=== PATIENT | female | born 1980 | race Caucasian/White ===

== ENCOUNTER 2016-10-08 01:21 | Observation (INO) | payer OTHER ==
[2016-10-08] MEDS ORDERED: SODIUM CHLORIDE 0.9% 1,000 ML IV STA (01:48)
[2016-10-08 02:12] LABS: Basophils # (A) 0.1 k/uL (0-0.2); Basophils % (A) 1 %; CH 28.1; CHCM 33.2; Eosinophils # (A) 0.3 k/uL (0-0.7); Eosinophils % (A) 3 %; HCT 35.3 % (34.0-46.0); HDW 2.97; HGB 11.7 gm/dL (11.4-16.0); Luc # (Auto) 0.12; Luc % (Auto) 1; Lymphocytes % (A) 19 %; MCH 28.2 pg (25.0-35.0); MCHC 33.1 g/dL (31.0-37.0); Mean Platelet Volume 7.6; Monocytes # (A) 0.5 k/uL (0-1.0); Monocytes % (A) 5 %; Neutrophils # (A) 7.4 k/uL (1.3-7.7); Neutrophils % (A) 72 %; RBC 4.15 m/uL (3.80-5.40); RDW 13.3 % (11.5-15.5); WBC 10.3 k/uL (3.8-10.6); WBC (Perox) 10.97
[2016-10-08 02:22] LABS: ALT 28 U/L (9-52); AST 18 U/L (14-36); Alkaline Phosphatase 78 U/L (38-126); Anion Gap 8 mmol/L; Blood Urea Nitrogen 11 mg/dL (7-17); Calcium 9.5 mg/dL (8.4-10.2); Carbon Dioxide 27 mmol/L (22-30); Chloride 107 mmol/L (98-107); Glucose 98 mg/dL (74-99); Magnesium 2.1 mg/dL (1.6-2.3); Non-African American GFR(MDRD) >60 (>60 ml/min/1.73 sqM); Potassium 3.5 mmol/L (3.5-5.1); Sodium 142 mmol/L (137-145); Total Bilirubin 0.4 mg/dL (0.2-1.3); Total Protein 6.8 g/dL (6.3-8.2)
[2016-10-08 02:34] LABS: Creatine Kinase 81 U/L (30-135)
[2016-10-08 02:38] LABS: INR 1.1 (<1.1); Prothrombin Time 10.8 sec (9.0-12.0)
[2016-10-08 02:46] LABS: Creatine Kinase MB 0.8 ng/mL (0.0-2.4); Troponin I <0.012 ng/mL (0.000-0.034)
--- NOTE | 2016-10-08 02:50 | XR ---
Chest PA and lateral views INDICATION: Chest pain COMPARISON: None. FINDINGS: PA and lateral views of the chest are obtained. The heart is upper limits of normal in size. Pulmonary vascularity is normal. There is no airspace consolidation, pleural effusion, or pneumothorax. Regional skeleton is intact. IMPRESSION: No radiographic evidence of acute cardiopulmonary disease.
[2016-10-08 03:00] LABS: Partial Thromboplastin Time 20.1 sec (22.0-30.0)
--- NOTE | 2016-10-08 03:33 | ED ---
Fall HPI - General Chief Complaint: Fall Stated Complaint: Seizure/Fall Time Seen by Provider: 10/08/16 01:47 Source: patient, family, RN notes reviewed, old records reviewed Mode of arrival: EMS - History of Present Illness Initial Comments: This is a 36-year-old female with chief complaint of possible seizure. Patient reports that she was standing in her living room. She reports that she then started having sharp chest pain question her chest and then fell to the ground. Patient reports that when she fell to the ground she had a coffee table with her arms. She rolls reports that she hit her head. Patient reports that her boyfriend stated that she then started to "flap like a fish". She states she's never had seizures before. She states that earlier today she went to a . She states that she smoked weed earlier. Denies any other drug or alcohol use. Patient states that at this time she just feels very tired. She did arrive via EMS. Denies any chest pain or shortness of breath, denies any nausea or vomiting or abdominal pain. She states that they're only pain is her head and neck after the fall. She denies any change in vision. Patient is post ictal at this time. Patient does appear to be very dazed and confused. - Related Data Home Medications Medication Instructions Recorded Confirmed ALPRAZolam [Xanax] 0.5 mg PO HS PRN 12/31/13 10/08/16 Naproxen [Naprosyn] 500 mg PO Q12HR PRN 12/31/13 10/08/16 Mirtazapine [Remeron] 15 mg PO HS 05/13/15 10/08/16 SUMAtriptan SUCCINATE [Imitrex] 100 mg PO BID PRN 02/21/16 10/08/16 Vilazodone Hydrochloride [Viibryd] 40 mg PO HS 02/21/16 10/08/16 lamoTRIgine [LaMICtal] 100 mg PO HS 02/21/16 10/08/16 Previous Rx's Medication Instructions Recorded Ondansetron Odt [Zofran ODT] 4 mg PO Q8HR PRN #10 tab 12/02/14 Allergies Allergy/AdvReac Type Severity Reaction Status Date / Time doxycycline Allergy Unknown Verified 10/08/16 01:32 Review of Systems ROS Statement: Those systems with pertinent positive or pertinent negative responses have been documented in the HPI. ROS Other: All systems not noted in ROS Statement are negative. Past Medical History Additional Past Medical History / Comment(s): migraines, lympoedema rt leg History of Any Multi-Drug Resistant Organisms: None Reported Past Surgical History: Adenoidectomy, Appendectomy, Cholecystectomy, Orthopedic Surgery, Tonsillectomy Additional Past Surgical History / Comment(s): mass left breast, migrain Past Psychological History: Anxiety, Bipolar, Depression Smoking Status: Current every day smoker Past Alcohol Use History: None Reported Past Drug Use History: Marijuana General Exam - General Exam Comments Initial Comments: This is a lethargic 36-year-old female. Limitations: no limitations General appearance: alert, in no apparent distress, appears intoxicated Head exam: Present: atraumatic, normocephalic, normal inspection Eye exam: Present: normal appearance, PERRL, EOMI. Absent: scleral icterus, conjunctival injection, periorbital swelling ENT exam: Present: normal exam, mucous membranes moist Neck exam: Present: normal inspection. Absent: tenderness, meningismus, lymphadenopathy Respiratory exam: Present: normal lung sounds bilaterally. Absent: respiratory distress, wheezes, rales, rhonchi, stridor Cardiovascular Exam: Present: regular rate, normal rhythm, normal heart sounds. Absent: systolic murmur, diastolic murmur, rubs, gallop, clicks GI/Abdominal exam: Present: soft, normal bowel sounds. Absent: distended, tenderness, guarding, rebound, rigid Extremities exam: Present: normal inspection, full ROM, normal capillary refill. Absent: tenderness, pedal edema, joint swelling, calf tenderness Back exam: Present: normal inspection Neurological exam: Present: alert, oriented X3, CN II-XII intact Psychiatric exam: Present: normal affect, normal mood Skin exam: Present: warm, dry, intact, normal color. Absent: rash Course Vital Signs 10/08/16 01:27 Temperature 97.5 F L Pulse Rate 68 Respiratory 18 Rate Blood Pressure 94/57 O2 Sat by Pulse 98 Oximetry Medical Decision Making - Medical Decision Making This is a 36-year-old female with chief complaint of anxiety induced chest pain later leading to her her her to fall and the floor and passed out. Her boyfriend states that she had a seizure-like episode for approximately 2 minutes. She arrives to the emergency department postictal. She is somewhat dazed and confused and very lethargic. Patient CAT scan was reviewed and negative for any acute process. Chest x-ray also negative. All lab work was reviewed and normal. Patient states she's never had a history of seizures in the past. Patient reports that earlier today she did take 0.25 mg of Ativan for her diagnosed anxiety. Patient states she's took no more than that. Patient will be admitted this time due to continued confusion and postictal state. Also new onset seizure. We'll consult neurology. Patient agrees to admission. - Lab Data Result diagrams: 10/08/16 01:47 10/08/16 01:47 Lab Results 10/08/16 10/08/16 10/08/16 Range/Units 01:47 01:47 01:47 WBC 10.3 (3.8-10.6) k/uL RBC 4.15 (3.80-5.40) m/uL Hgb 11.7 (11.4-16.0) gm/dL Hct 35.3 (34.0-46.0) % MCV 85.0 (80.0-100.0) fL MCH 28.2 (25.0-35.0) pg MCHC 33.1 (31.0-37.0) g/dL RDW 13.3 (11.5-15.5) % Plt Count 207 (150-450) k/uL Neutrophils % 72 % Lymphocytes % 19 % Monocytes % 5 % Eosinophils % 3 % Basophils % 1 % Neutrophils # 7.4 (1.3-7.7) k/uL Lymphocytes # 2.0 (1.0-4.8) k/uL Monocytes # 0.5 (0-1.0) k/uL Eosinophils # 0.3 (0-0.7) k/uL Basophils # 0.1 (0-0.2) k/uL PT (9.0-12.0) sec INR (<1.1) APTT (22.0-30.0) sec Sodium 142 (137-145) mmol/L Potassium 3.5 (3.5-5.1) mmol/L Chloride 107 (98-107) mmol/L Carbon Dioxide 27 (22-30) mmol/L Anion Gap 8 mmol/L BUN 11 (7-17) mg/dL Creatinine 0.80 (0.52-1.04) mg/dL Est GFR (MDRD) Af Amer >60 (>60 ml/min/1.73 sqM) Est GFR (MDRD) Non-Af >60 (>60 ml/min/1.73 sqM) Glucose 98 (74-99) mg/dL Calcium 9.5 (8.4-10.2) mg/dL Magnesium 2.1 (1.6-2.3) mg/dL Total Bilirubin 0.4 (0.2-1.3) mg/dL AST 18 (14-36) U/L ALT 28 (9-52) U/L Alkaline Phosphatase 78 (38-126) U/L Total Creatine Kinase 81 (30-135) U/L CK-MB (CK-2) 0.8 (0.0-2.4) ng/mL CK-MB (CK-2) Rel Index 1.0 Troponin I <0.012 (0.000-0.034) ng/mL NT-Pro-B Natriuret Pep pg/mL Total Protein 6.8 (6.3-8.2) g/dL Albumin 4.2 (3.5-5.0) g/dL Urine Opiates Screen (NotDetected) Ur Oxycodone Screen (NotDetected) Urine Methadone Screen (NotDetected) Ur Propoxyphene Screen (NotDetected) Ur Barbiturates Screen (NotDetected) U Tricyclic Antidepress (NotDetected) Ur Phencyclidine Scrn (NotDetected) Ur Amphetamines Screen (NotDetected) U Methamphetamines Scrn (NotDetected) U Benzodiazepines Scrn (NotDetected) Urine Cocaine Screen (NotDetected) U Marijuana (THC) Screen (NotDetected) 10/08/16 10/08/16 10/08/16 Range/Units 01:47 01:47 01:47 WBC (3.8-10.6) k/uL RBC (3.80-5.40) m/uL Hgb (11.4-16.0) gm/dL Hct (34.0-46.0) % MCV (80.0-100.0) fL MCH (25.0-35.0) pg MCHC (31.0-37.0) g/dL RDW (11.5-15.5) % Plt Count (150-450) k/uL Neutrophils % % Lymphocytes % % Monocytes % % Eosinophils % % Basophils % % Neutrophils # (1.3-7.7) k/uL Lymphocytes # (1.0-4.8) k/uL Monocytes # (0-1.0) k/uL Eosinophils # (0-0.7) k/uL Basophils # (0-0.2) k/uL PT 10.8 (9.0-12.0) sec INR 1.1 (<1.1) APTT 20.1 L (22.0-30.0) sec Sodium (137-145) mmol/L Potassium (3.5-5.1) mmol/L Chloride (98-107) mmol/L Carbon Dioxide (22-30) mmol/L Anion Gap mmol/L BUN (7-17) mg/dL Creatinine (0.52-1.04) mg/dL Est GFR (MDRD) Af Amer (>60 ml/min/1.73 sqM) Est GFR (MDRD) Non-Af (>60 ml/min/1.73 sqM) Glucose (74-99) mg/dL Calcium (8.4-10.2) mg/dL Magnesium (1.6-2.3) mg/dL Total Bilirubin (0.2-1.3) mg/dL AST (14-36) U/L ALT (9-52) U/L Alkaline Phosphatase (38-126) U/L Total Creatine Kinase (30-135) U/L CK-MB (CK-2) (0.0-2.4) ng/mL CK-MB (CK-2) Rel Index Troponin I (0.000-0.034) ng/mL NT-Pro-B Natriuret Pep 59 pg/mL Total Protein (6.3-8.2) g/dL Albumin (3.5-5.0) g/dL Urine Opiates Screen Not Detected (NotDetected) Ur Oxycodone Screen Not Detected (NotDetected) Urine Methadone Screen Not Detected (NotDetected) Ur Propoxyphene Screen Not Detected (NotDetected) Ur Barbiturates Screen Not Detected (NotDetected) U Tricyclic Antidepress Not Detected (NotDetected) Ur Phencyclidine Scrn Not Detected (NotDetected) Ur Amphetamines Screen Not Detected (NotDetected) U Methamphetamines Scrn Not Detected (NotDetected) U Benzodiazepines Scrn Detected H (NotDetected) Urine Cocaine Screen Not Detected (NotDetected) U Marijuana (THC) Screen Detected H (NotDetected) 10/08/16 04:33 EKG shows sinus rhythm. Nonspecific ST abnormality. Ventricular rate. [place] interval 162 ms. QRS duration 84 ms. QT QTc is 34/73 ms. EKG does have evidence of what appears to be artifact time. - Radiology Data Radiology results: report reviewed Computed tomography scan of brain and neck were reviewed and negative for any acute process. Chest x-ray also negative for any acute process. Disposition Clinical Impression: New onset seizure Disposition: ADMITTED IP TO THIS HOSP Condition: Stable Time of Disposition: 04:25
--- NOTE | 2016-10-08 03:34 | CT ---
CT HEAD Without Contrast INDICATION: Headache TECHNIQUE: Helical CT acquisition was performed from the posterior fossa to the cranial vault. Sagittal and coronal reformatted images provided. No IV contrast is administered. This CT exam was performed using one or more of the following dose reduction techniques: automated exposure control, adjustment of the mA and/or kV according to patient size, and/or use of iterative reconstruction technique. DOSIMETRY: CTDIvol 57.40 mGy; DLP 892.10 mGy-cm COMPARISON: None. FINDINGS: No intracranial hemorrhage, abnormal intra- or extra-axial collections or parenchymal lesions are seen. The shape and configuration of the cortical sulci, basal cisterns and ventricles are within normal limits. The mcdaniel-white differentiation is preserved. No evidence of mass effect, midline shift, or edema. There is no evidence of skull fracture. The visualized portions of the paranasal sinuses are clear. IMPRESSION: No CT evidence of acute intracranial process. CT C SPINE Without Contrast INDICATION: Neck pain TECHNIQUE: Helical CT acquisition was performed from the cervical spine. Sagittal and coronal reformatted images provided. No IV contrast is administered. This CT exam was performed using one or more of the following dose reduction techniques: automated exposure control, adjustment of the mA and/or kV according to patient size, and/or use of iterative reconstruction technique. DOSIMETRY: CTDIvol 20.00 mGy; DLP 369.60 mGy-cm COMPARISON: None. FINDINGS: There is reversal of the normal cervical lordosis with mild kyphosis. Vertebral body height and alignment are maintained. There is no evidence of acute fracture or subluxation. Spinal canal is adequately patent. Disc spaces are preserved. There is no prevertebral soft tissue swelling. The lung apices are clear. IMPRESSION: 1. Reversal of the normal cervical lordosis without evidence of acute fracture or subluxation.
[2016-10-08] MEDS ORDERED: NALOXONE 0.4 MG/ML 1 ML VIAL IV PRN (04:25)
[2016-10-08] MEDS ORDERED: ONDANSETRON 4 MG/2 ML VIAL IVP PRN (04:25)
[2016-10-08] MEDS ORDERED: NAPROXEN 250 MG TAB PO PRN (04:48)
[2016-10-08] MEDS ORDERED: ALPRAZolam 0.5 MG TAB PO PRN (04:48)
[2016-10-08] MEDS ORDERED: SUMAtriptan SUCCINATE 50 MG TAB PO PRN (04:48)
[2016-10-08] MEDS ORDERED: LORazepam 2 MG/ML SYRINGE IV PRN (05:12)
[2016-10-08 05:50] VITALS: BMI 25.8
[2016-10-08] MEDS: ACETAMINOPHEN TAB 325 MG TAB PO PRN ×2 (06:07→14:28)
[2016-10-08] MEDS: SODIUM CHLORIDE 0.9% 1,000 ML IV SCH ×3 (06:09→22:49)
[2016-10-08] MEDS: PANTOPRAZOLE 40 MG/10 ML VIAL IV SCH (07:48)
--- NOTE | 2016-10-08 15:08 | P.CNNES ---
History of Present Illness Consult date: 10/08/16 Reason for Consult: Patient admitted with possible new onset seizure. History of Present Illness: This patient is a 36-year-old female who states that she was in her usual state of health until yesterday evening. She was at home and was standing in the living room area when she developed severe chest pain. She grabbed her chest and apparently fell down and struck her head on a coffee table. She apparently did have some loss of consciousness and then had what her boyfriend describes as a questionable seizure. She began some tonic-clonic movements. She did not have any bowel or bladder incontinence but did have some nausea vomiting. She denies any previous history of seizures or head injury. She did admit to smoking marijuana early in the day as she had to attend a . EMS was called to the home and she was admitted to Hospital. In the ER the patient underwent computed tomography scan of the brain and cervical spine. Both of the studies came back negative for any acute changes. She does have history of underlying bipolar disorder and panic attacks. She is not sure what had triggered this recent event. She does use Ativan for treatment of underlying anxiety disorder. It is unclear whether this may have been a secondary seizure due to closed head injury following her fall. She apparently has not had symptoms of severe chest pain previous to this event. She may be considered for cardiology consultation. She denies any other medical issues and denies any recent heart difficulties. She is now been admitted and neurology has been consulted for further evaluation and recommendations. Review of Systems Constitutional: Denies chills, Denies fever Eyes: denies blurred vision, denies pain Ears, nose, mouth and throat: Denies headache, Denies sore throat Cardiovascular: Denies chest pain, Denies shortness of breath Respiratory: Denies cough Gastrointestinal: Denies abdominal pain, Denies diarrhea, Denies nausea, Denies vomiting Genitourinary: Denies dysuria, Denies hematuria Musculoskeletal: Denies myalgias Integumentary: Denies pruritus, Denies rash Neurological: Reports confusion, Reports convulsions, Reports head injury, Reports seizures, Denies numbness, Denies weakness Psychiatric: Denies anxiety, Denies depression Endocrine: Denies fatigue, Denies weight change Past Medical History Additional Past Medical History / Comment(s): migraines, lympoedema rt leg History of Any Multi-Drug Resistant Organisms: None Reported Past Surgical History: Adenoidectomy, Appendectomy, Cholecystectomy, Orthopedic Surgery, Tonsillectomy Additional Past Surgical History / Comment(s): mass left breast, migrain Past Psychological History: Anxiety, Bipolar, Depression Smoking Status: Current every day smoker Past Alcohol Use History: None Reported Past Drug Use History: Marijuana - Past Family History Mother Family Medical History: No Reported History Father Family Medical History: No Reported History Medications and Allergies Home Medications Medication Instructions Recorded Confirmed Type ALPRAZolam [Xanax] 0.5 mg PO HS PRN 12/31/13 10/08/16 History Naproxen [Naprosyn] 500 mg PO Q12HR PRN 12/31/13 10/08/16 History Mirtazapine [Remeron] 15 mg PO HS 05/13/15 10/08/16 History SUMAtriptan SUCCINATE [Imitrex] 100 mg PO BID PRN 02/21/16 10/08/16 History Vilazodone Hydrochloride [Viibryd] 40 mg PO HS 02/21/16 10/08/16 History lamoTRIgine [LaMICtal] 100 mg PO HS 02/21/16 10/08/16 History Ergocalciferol [Vitamin D2] 50,000 unit PO TH 10/08/16 10/08/16 History Allergies Allergy/AdvReac Type Severity Reaction Status Date / Time doxycycline AdvReac Nausea & Verified 10/08/16 08:52 Vomiting Physical Examination - Vital Signs Vital Signs: Vital Signs Temp Pulse Pulse Pulse Resp BP BP 10/08/16 08:00 63 72 17 10/08/16 07:00 98.2 F 63 17 94/55 10/08/16 06:10 98.3 F 72 20 106/64 10/08/16 05:22 84 16 117/69 Pulse Ox 10/08/16 08:00 10/08/16 07:00 98 10/08/16 06:10 98 10/08/16 05:22 98 Intake and Output 10/07/16 10/08/16 10/08/16 22:59 06:59 14:59 Other: Voiding Method Toilet Toilet Weight 56 kg 56 kg Patient Weight 10/09/16 06:59 Weight 56 kg - Constitutional General appearance: average body habitus, cooperative - EENT EENT: PERRL, mucous membranes moist - Respiratory Respiratory: lungs clear, normal breath sounds - Cardiovascular Cardiovascular: regular rate, normal S1, normal S2 Extremities: no peripheral edema bilaterally - Gastrointestinal Gastrointestinal: normoactive bowel sounds - Integumentary Integumentary: normal - Neurologic Cranial nerve examination: PERRL, EOMI, VFF, V1/V2/V3 grossly intact, tongue midline, intact gag reflex, intact corneal reflex, normal palatal elevation ( Some. He was put it is ICU) Speech examination: intact ( she isBecause she was on the medical floor and transferred her ) Sensorimotor examination: intact Detailed motor examination: grossly full strength in all extremities Detailed sensory examination: intact Reflexes: 1+: ankle, bicep, knee, tricep - Musculoskeletal Musculoskeletal: no pain - Psychiatric Psychiatric: mood/affect appropriate, cooperative Results - Laboratory Findings CBC and BMP: 10/08/16 01:47 10/08/16 01:47 Assessment and Plan (1) New onset seizure Status: Acute Code(s): R56.9 - UNSPECIFIED CONVULSIONS (2) Closed head injury Status: Acute Code(s): S09.90XA - UNSPECIFIED INJURY OF HEAD, INITIAL ENCOUNTER (3) Panic attacks Status: Acute Code(s): F41.0 - PANIC DISORDER WITHOUT AGORAPHOBIA (4) Migraine headache Status: Acute Code(s): G43.909 - MIGRAINE, UNSP, NOT INTRACTABLE, WITHOUT STATUS MIGRAINOSUS Plan: This patient is a 36-year-old female admitted to Hospital with closed head injury and possible new onset seizure. Patient was at home and developed severe chest pain and collapse and struck her head on a coffee table. She apparently had what appeared to be a small seizure lasting 1-2 minutes in duration. She came around and did appear to be confused. EMS was called to the scene and she was brought in to the emergency room subsequent admitted to the hospital. She underwent a computed tomography scan of the brain and cervical spine both of which were negative for any acute changes. Her neurological examination at this time is nonfocal. We recommend patient undergo routine EEG for further evaluation of possible seizure disorder. Her urine drug screen was positive for marijuana and benzodiazepines. She is encouraged to seek out drug rehabilitation. Her overall prognosis at this time remains guarded. Patient was explained [employer] driving law which states she cannot drive for appeared to 6 months following her last seizure and/or syncopal episode. She is aware of this restriction. We will continue close neurological follow-up for the patient during this admission. Time with Patient: Greater than 30
--- NOTE | 2016-10-08 20:00 | HP ---
DATE OF ADMISSION: 10/08/2016 CHIEF COMPLAINT: New onset seizure. HISTORY OF PRESENT ILLNESS: This is the first admission for this 36-year-old G4, P3 female. She passed out and apparently had tonic-clonic movements. She was brought to the emergency room where it was felt that she probably had a seizure. She states that about 2 years ago she had a TIA. She was incontinent with this event. She also had a history of bipolar depression. CT in the emergency room was negative. REVIEW OF SYSTEMS: She has had no change in vision or the hearing, cough, hemoptysis, chest pain or shortness of breath, murmurs, rheumatic fever, heart disease, abdominal pain, nausea, vomiting, hematemesis, melena, hematochezia, jaundice, stool incontinence, etc. She has had no renal disease, hematuria, frequency, urgency, or dysuria, etc. She has had no diabetes. Past medical history, family history, personal and social histories reveal that SHE IS ALLERGIC TO TETRACYCLINE. Her medications include: 1. Viibyrd. 2. Xanax. 3. Remeron. 4. Lamictal. PAST SURGICAL HISTORY: She has had appendectomy, cholecystectomy, left breast biopsy, tubal ligation, arthroscopies of both knees. She smokes a pack of cigarettes a day. PHYSICAL EXAMINATION: VITAL SIGNS: Blood pressure 135/65 with a pulse of 83, respirations of 15 and she is afebrile. GENERAL: She appeared to be well-developed, well-nourished, in no acute distress. SKIN: Skin color is normal. Skin is warm and dry. Lymph nodes are not enlarged. Head, ears, eyes, nose, mouth, and throat were normal. Neck veins not distended. The carotids are normal. CHEST: Clear. CARDIAC: Normal. ABDOMEN: Soft and nontender. EXTREMITIES: Normal. NEUROLOGICAL: He is intact. IMPRESSION: 1. Grand mal seizure disorder. 2. Bipolar depression. 3. History of transient ischemic attack in the past. PLAN: 1. Bed rest. 2. IV fluids. 3. Seizure precautions. 4. Carotid duplex imaging. 5. Echocardiogram. 6. EEG. 7. Probably start anticonvulsants.
[2016-10-08] MEDS ORDERED: MIRTAZAPINE 15 MG TAB PO SCH (21:00)
[2016-10-08] MEDS ORDERED: VILAZODONE HYDROCHLORIDE 40 MG PO SCH (21:00)
[2016-10-08] MEDS ORDERED: lamoTRIgine 100 MG TAB PO SCH (21:00)
[2016-10-08] MEDS ORDERED: VIIBRYD 40 MG PO SCH (22:30)
[2016-10-09] MEDS: ACETAMINOPHEN TAB 325 MG TAB PO PRN (06:30)
[2016-10-09 08:58] VITALS: BP 112/73; PULSE 76; RESP 17; TEMP 98.2
[2016-10-09] MEDS: SODIUM CHLORIDE 0.9% 1,000 ML IV SCH ×2 (08:59→14:55)
[2016-10-09] MEDS: PANTOPRAZOLE 40 MG/10 ML VIAL IV SCH (08:59)
--- NOTE | 2016-10-09 10:06 | P.DS ---
Providers Date of admission: 10/09/16 08:50 Expected date of discharge: 10/09/16 Attending physician: Lev Price Consults: Dr. Overton Primary care physician: [place] [facility] Course: This patient is a 36-year-old female admitted to Hospital with closed head injury and possible new onset seizure. Patient was at home and developed severe chest pain and collapse and struck her head on a coffee table. She apparently had what appeared to be a small seizure lasting 1-2 minutes in duration. She came around and did appear to be confused. EMS was called to the scene and she was brought in to the emergency room subsequent admitted to the hospital. She underwent a computed tomography scan of the brain and cervical spine both of which were negative for any acute changes. Her neurological examination at this time is nonfocal. We recommend patient undergo routine EEG for further evaluation of possible seizure disorder. Her urine drug screen was positive for marijuana and benzodiazepines. She is encouraged to seek out drug rehabilitation. Her overall prognosis at this time remains guarded. Patient was explained [employer] driving law which states she cannot drive for appeared to 6 months following her last seizure and/or syncopal episode. She is aware of this restriction Patient was felt to be hemodynamically stable and appropriate proceed with a discharge to home Impression discharge diagnosis (1) New onset seizure Status: Acute Code(s): R56.9 - UNSPECIFIED CONVULSIONS (2) Closed head injury Status: Acute Code(s): S09.90XA - UNSPECIFIED INJURY OF HEAD, INITIAL ENCOUNTER (3) Panic attacks Status: Acute Code(s): F41.0 - PANIC DISORDER WITHOUT AGORAPHOBIA (4) Migraine headache Status: Acute Present on admission grand mal seizure disorder History bipolar depressive disorder Positive drug screen for marijuana and benzodiazepine The above dictated assessment and findings were discussed with dr price . Impression and the plan of care have been dictated as directed. Ольга Jacques nurse practitioner acting as a scribe for dr price Patient Condition at Discharge: Stable Plan - Discharge Summary Discharge Medication List ALPRAZolam [Xanax] 0.5 mg PO HS PRN 12/31/13 [History] Naproxen [Naprosyn] 500 mg PO Q12HR PRN 12/31/13 [History] Ondansetron Odt [Zofran ODT] 4 mg PO Q8HR PRN #10 tab 12/02/14 [Rx] Mirtazapine [Remeron] 15 mg PO HS 05/13/15 [History] SUMAtriptan SUCCINATE [Imitrex] 100 mg PO BID PRN 02/21/16 [History] Vilazodone Hydrochloride [Viibryd] 40 mg PO HS 02/21/16 [History] lamoTRIgine [LaMICtal] 100 mg PO HS 02/21/16 [History] Ergocalciferol [Vitamin D2 (DRISDOL)] 50,000 unit PO TH 10/08/16 [History] Follow up Appointment(s)/Referral(s): Isabel Arguello MD [Primary Care Provider] - 1-2 days Ruth Overton MD [STAFF PHYSICIAN] - 1 Week Activity/Diet/Wound Care/Special Instructions: [employer] law no driving for 6 months Discharge Disposition: HOME SELF-CARE
[2016-10-10] MEDS ORDERED: PANTOPRAZOLE 40 MG TABLET PO SCH (07:30)
--- NOTE | 2016-10-10 17:54 | PN ---
CHIEF COMPLAINT: New-onset seizure. HISTORY OF PRESENT ILLNESS: This lady is doing well and she has had no seizure issues. It is felt that she could be discharged today, and she will be followed up in the office. This will be arranged by the nurse practitioner.
--- NOTE | 2016-10-11 09:14 | EEG ---
DATE OF SERVICE: 10/09/2016 INDICATIONS FOR EXAMINATION: This patient is a 36-year-old female being evaluated for new onset seizure. Patient with history of smoking marijuana and possible alcohol intoxication. Patient also with history of bipolar disorder. AGE: 36Y EEG FINDINGS: A routine 21-channel, awake digital EEG recording was accomplished utilizing the 10 - 20 international system with bipolar and referential montages. The background activity in the most alert resting state consists of a low to medium amplitude, fairly well-developed and well-sustained 6 - 7 Hz activity over the posterior head regions. This posterior rhythm attenuates to eye opening. There is a small amount of low amplitude 18 - 20 Hz beta activity seen maximally over the anterior head regions. Muscle and movement artifact was observed on a few occasions during the tracing. Hyperventilation was not performed. Photic stimulation at flash frequencies of 2 - 30 Hz produced a minimal occipital driving response. No epileptiform discharges were seen. IMPRESSION: This EEG is mildly abnormal in a diffuse fashion due to slowing of the EEG background. The EEG failed to reveal any focal, lateralized or epileptiform abnormalities. Clinical correlation is recommended.
== END 2016-10-09 14:55 | disposition home or self-care (01) ==
LOC: EC 01:21 → UNDOADMOB 04:40 → 5MS5E 04:40
PROVIDERS: ADMIT Family Medicine; ATTEND Family Medicine
DX: G40.409 Other generalized epilepsy and epileptic syndromes, not intractable, without status epilepticus (principal); S09.90XA Unspecified injury of head, initial encounter; F41.0 Panic disorder [episodic paroxysmal anxiety]; G43.909 Migraine, unspecified, not intractable, without status migrainosus; F31.9 Bipolar disorder, unspecified; F17.210 Nicotine dependence, cigarettes, uncomplicated; F12.90 Cannabis use, unspecified, uncomplicated; Z79.899 Other long term (current) drug therapy; Z88.1 Allergy status to other antibiotic agents; W18.09XA Striking against other object with subsequent fall, initial encounter; Y92.009 Unspecified place in unspecified non-institutional (private) residence as the place of occurrence of the external cause; R07.9 Chest pain, unspecified; Z86.73 Personal history of transient ischemic attack (TIA), and cerebral infarction without residual deficits
CPT/HCPCS: 96360; 96361 ×2; 99285; 36415; 95819; 93005; 83880; 80053; 82550; 82553; 83735; 84484; 85025; 85610; 85730; 80306; 71020; 72125; 70450; G0378; C9113

== ENCOUNTER 2018-02-22 11:03 | Emergency (ER) | payer OTHER ==
[2018-02-22] MEDS ORDERED: ACETAMINOPHEN TAB 500 MG TAB PO STA (12:19)
--- NOTE | 2018-02-22 12:34 | ED ---
General Adult HPI - General Chief complaint: Dental/Oral Stated complaint: Abscess on Neck Time Seen by Provider: 02/22/18 12:00 Source: patient, RN notes reviewed Mode of arrival: ambulatory Limitations: no limitations - History of Present Illness Initial comments: Patient is a 38 year old female who presents to the emergency department with complaint of right lower jaw pain. Patient has a history of poor dentition and dental abscess treated with antibiotics. Patient states she is ALLERGIC to doxycycline. Patient denies having regular dental care and has not seen a dentist in a long time. At home she has used Motrin, Orajel, and mouth rinse. She reports having trouble eating, but she is able to drink liquids. She is tolerating her secretions. Patient denies any recent fever, chills, shortness of breath, chest pain, back pain, abdominal pain, nausea or vomiting, or any other complaints. - Related Data Home Medications Medication Instructions Recorded Confirmed ALPRAZolam [Xanax] 0.5 mg PO HS PRN 12/31/13 02/22/18 Naproxen [Naprosyn] 500 mg PO Q12HR PRN 12/31/13 02/22/18 Mirtazapine [Remeron] 15 mg PO HS 05/13/15 02/22/18 SUMAtriptan SUCCINATE [Imitrex] 100 mg PO BID PRN 02/21/16 02/22/18 Vilazodone HCl [Viibryd] 40 mg PO HS 02/21/16 02/22/18 lamoTRIgine [LaMICtal] 100 mg PO HS 02/21/16 02/22/18 Ergocalciferol [Vitamin D2 50,000 unit PO TH 10/08/16 02/22/18 (DRISDOL)] Previous Rx's Medication Instructions Recorded Ondansetron Odt [Zofran ODT] 4 mg PO Q8HR PRN #10 tab 12/02/14 Penicillin V Potassium [Pen Vee K] 500 mg PO QID #40 tablet 02/22/18 Allergies Allergy/AdvReac Type Severity Reaction Status Date / Time doxycycline AdvReac Nausea & Verified 02/22/18 11:58 Vomiting Review of Systems ROS Statement: Those systems with pertinent positive or pertinent negative responses have been documented in the HPI. ROS Other: All systems not noted in ROS Statement are negative. Past Medical History Additional Past Medical History / Comment(s): migraines, lympoedema rt leg History of Any Multi-Drug Resistant Organisms: None Reported Past Surgical History: Adenoidectomy, Appendectomy, Cholecystectomy, Orthopedic Surgery, Tonsillectomy Additional Past Surgical History / Comment(s): mass left breast, migrain Past Psychological History: Anxiety, Bipolar, Depression Smoking Status: Current every day smoker Past Alcohol Use History: None Reported Past Drug Use History: Marijuana - Past Family History Mother Family Medical History: No Reported History Father Family Medical History: No Reported History General Exam - General Exam Comments Initial Comments: General: Well-developed, well-nourished HEENT: Swallowing well, tympanic membranes clear bilaterally, enlarged tonsillar lymph nodes, tenderness over the right lower jaw without erythema, tenderness of right lower gum area without obvious abscess Neck: Supple, nontender, trachea midline Chest/Lungs: Normal respirations, no signs of respiratory distress clear to auscultation bilaterally no wheezes, rales, rhonchi Cardiac: Regular rate and rhythm, normal S1-S2, no murmurs rubs or gallops Abdomen/GI: Soft, nontender Musculoskeletal: Moving all extremities Skin: Warmth, no rashes or lesions, no cyanosis or diaphoresis Neurologic: AAO x 3 Course Vital Signs 02/22/18 11:57 Temperature 98.5 F Pulse Rate 73 Respiratory 18 Rate Blood Pressure 128/72 O2 Sat by Pulse 96 Oximetry Medical Decision Making - Medical Decision Making Patient presented with right lower jaw pain. This is likely a dental abscess. Patient has been told that she needs to see an oral surgeon. Given Tylenol in the emergency department for pain. Disposition Clinical Impression: Dental abscess Disposition: HOME SELF-CARE Condition: Good Instructions: Dental Abscess (ED) Additional Instructions: Please follow-up with dentist and use antibiotic and pain medication as discussed. [facility] [address] [address] [phone]) (existing clients only) For new clients: [phone] [facility] Pay $50 for x-rays and the rest discovered [phone] [id number] Tylenol and Motrin for pain. Prescriptions: Penicillin V Potassium [Pen Vee K] 500 mg PO QID #40 tablet Is patient prescribed a controlled substance at d/c from ED?: No Referrals: Isabel Arguello MD [Primary Care Provider] - 1-2 days Time of Disposition: 13:07
[2018-02-22 13:20] VITALS: BP 118/56; PULSE 68; RESP 20; TEMP 98.4
== END 2018-02-22 13:11 | disposition home or self-care (01) ==
LOC: EC 11:03
DX: K04.7 Periapical abscess without sinus (principal); L02.11 Cutaneous abscess of neck; F41.9 Anxiety disorder, unspecified; F32.9 Major depressive disorder, single episode, unspecified; F17.200 Nicotine dependence, unspecified, uncomplicated; Z79.899 Other long term (current) drug therapy; Z88.1 Allergy status to other antibiotic agents; Z90.89 Acquired absence of other organs
CPT/HCPCS: 99283

== ENCOUNTER 2018-03-14 12:24 | Emergency (ER) | payer OTHER ==
[2018-03-14 12:33] VITALS: TEMP 98.6
[2018-03-14] MEDS ORDERED: IPRATROPIUM-ALBUTEROL 3 ML NEB INHALATION STA (12:49)
[2018-03-14] MEDS ORDERED: methylPREDNISolone SOD SUCCI 125 MG/2 ML VIAL IV STA (12:53)
[2018-03-14 13:39] LABS: Basophils % (A) 1 %; Eosinophils # (A) 0.2 k/uL (0-0.7); Eosinophils % (A) 4 %; HGB 11.4 gm/dL (11.4-16.0); Lymphocytes # (A) 1.8 k/uL (1.0-4.8); Lymphocytes % (A) 26 %; MCH 27.7 pg (25.0-35.0); MCHC 33.4 g/dL (31.0-37.0); MCV 82.9 fL (80.0-100.0); Mean Platelet Volume 7.5; Monocytes # (A) 0.4 k/uL (0-1.0); Monocytes % (A) 6 %; Neutrophils # (A) 4.3 k/uL (1.3-7.7); Neutrophils % (A) 63 %; Platelet Count 216 k/uL (150-450); RDW 13.7 % (11.5-15.5); WBC 6.9 k/uL (3.8-10.6)
--- NOTE | 2018-03-14 13:45 | ED ---
URI HPI - General Chief Complaint: Upper Respiratory Infection Stated Complaint: diff breathing,congestion Time Seen by Provider: 03/14/18 12:41 Source: patient, RN notes reviewed Mode of arrival: ambulatory Limitations: no limitations - History of Present Illness Initial Comments: 38-year-old female sent emergency Department chief complaint of cough congestion shortness breath. Patient states she has been sick for over one week has been on 2 rounds of antibiotics. Patient states that today has been the worse. She did try her daughter's inhaler with no relief. Patient states she noticed some wheezing and she can't stop coughing. Patient reports no fever or chills. Patient states only hurts when she coughs she has no chest pain. Denies headache, dizziness, nausea, vomiting, diarrhea constipation. Denies any [id number] cough and cold medications. - Related Data Home Medications Medication Instructions Recorded Confirmed Mirtazapine [Remeron] 15 mg PO HS 05/13/15 03/14/18 Vilazodone HCl [Viibryd] 40 mg PO HS 02/21/16 03/14/18 lamoTRIgine [LaMICtal] 100 mg PO HS 02/21/16 03/14/18 Ibuprofen [Motrin Ib] 600 mg PO Q6H PRN 03/14/18 03/14/18 Penicillin V Potassium [Pen Vee K] 500 mg PO BID 03/14/18 03/14/18 Previous Rx's Medication Instructions Recorded Albuterol Sulfate [Proair Hfa] 1 - 2 puff INHALATION Q4HR PRN #1 03/14/18 inhaler predniSONE 50 mg PO DAILY #5 tab 03/14/18 Allergies Allergy/AdvReac Type Severity Reaction Status Date / Time doxycycline AdvReac Nausea & Verified 03/14/18 14:42 Vomiting Review of Systems ROS Statement: Those systems with pertinent positive or pertinent negative responses have been documented in the HPI. ROS Other: All systems not noted in ROS Statement are negative. Past Medical History Additional Past Medical History / Comment(s): migraines, lympoedema rt leg History of Any Multi-Drug Resistant Organisms: None Reported Past Surgical History: Adenoidectomy, Appendectomy, Cholecystectomy, Orthopedic Surgery, Tonsillectomy Additional Past Surgical History / Comment(s): mass left breast, migrain Past Psychological History: Anxiety, Bipolar, Depression Smoking Status: Current every day smoker Past Alcohol Use History: None Reported Past Drug Use History: Marijuana - Past Family History Mother Family Medical History: No Reported History Father Family Medical History: No Reported History General Exam Limitations: no limitations General appearance: alert, in no apparent distress Head exam: Present: atraumatic, normocephalic, normal inspection Eye exam: Present: normal appearance, PERRL, EOMI. Absent: scleral icterus, conjunctival injection, periorbital swelling ENT exam: Present: normal exam, normal oropharynx, mucous membranes moist, TM's normal bilaterally, normal external ear exam Neck exam: Present: normal inspection. Absent: tenderness, meningismus, lymphadenopathy Respiratory exam: Present: respiratory distress (Mild), wheezes. Absent: normal lung sounds bilaterally, rales, rhonchi, stridor Cardiovascular Exam: Present: regular rate, normal rhythm, normal heart sounds. Absent: systolic murmur, diastolic murmur, rubs, gallop, clicks Back exam: Absent: CVA tenderness (R), CVA tenderness (L) Skin exam: Present: warm, dry, intact, normal color. Absent: rash Course Vital Signs 03/14/18 03/14/18 03/14/18 12:30 12:50 12:59 Temperature 98.6 F Pulse Rate 81 80 Respiratory 24 18 Rate Blood Pressure 91/59 O2 Sat by Pulse 98 Oximetry 03/14/18 03/14/18 03/14/18 13:18 13:24 13:25 Temperature Pulse Rate 86 82 Respiratory 24 Rate Blood Pressure 102/54 O2 Sat by Pulse 100 Oximetry 03/14/18 03/14/18 15:20 15:33 Temperature Pulse Rate 80 80 Respiratory Rate Blood Pressure O2 Sat by Pulse Oximetry Medical Decision Making - Medical Decision Making 38-year-old female presented to emergency Department for cough congestion and wheezing. Patient was given treatment in emergency Department and has improved. She states she has no chest pain or shortness of breath. Patient is a smoker. Patient will be discharged on prednisone and pro-air. - Lab Data Result diagrams: 03/14/18 13:11 03/14/18 13:11 Lab Results 03/14/18 03/14/18 Range/Units 13:11 13:11 WBC 6.9 (3.8-10.6) k/uL RBC 4.10 (3.80-5.40) m/uL Hgb 11.4 (11.4-16.0) gm/dL Hct 34.0 (34.0-46.0) % MCV 82.9 (80.0-100.0) fL MCH 27.7 (25.0-35.0) pg MCHC 33.4 (31.0-37.0) g/dL RDW 13.7 (11.5-15.5) % Plt Count 216 (150-450) k/uL Neutrophils % 63 % Lymphocytes % 26 % Monocytes % 6 % Eosinophils % 4 % Basophils % 1 % Neutrophils # 4.3 (1.3-7.7) k/uL Lymphocytes # 1.8 (1.0-4.8) k/uL Monocytes # 0.4 (0-1.0) k/uL Eosinophils # 0.2 (0-0.7) k/uL Basophils # 0.0 (0-0.2) k/uL Sodium 141 (137-145) mmol/L Potassium 3.9 (3.5-5.1) mmol/L Chloride 108 H (98-107) mmol/L Carbon Dioxide 21 L (22-30) mmol/L Anion Gap 12 mmol/L BUN 6 L (7-17) mg/dL Creatinine 0.78 (0.52-1.04) mg/dL Est GFR (CKD-EPI)AfAm >90 (>60 ml/min/1.73 sqM) Est GFR (CKD-EPI)NonAf >90 (>60 ml/min/1.73 sqM) Glucose 85 (74-99) mg/dL Calcium 9.6 (8.4-10.2) mg/dL Magnesium 2.1 (1.6-2.3) mg/dL Total Bilirubin 0.5 (0.2-1.3) mg/dL AST 33 (14-36) U/L ALT 46 (9-52) U/L Alkaline Phosphatase 116 (38-126) U/L Total Protein 6.8 (6.3-8.2) g/dL Albumin 4.1 (3.5-5.0) g/dL Disposition Clinical Impression: Bronchitis, COPD (chronic obstructive pulmonary disease) Disposition: HOME SELF-CARE Condition: Stable Instructions: Acute Bronchitis (ED) Additional Instructions: Please return to the Emergency Department if symptoms worsen or any other concerns. Prescriptions: Albuterol Sulfate [Proair Hfa] 1 - 2 puff INHALATION Q4HR PRN #1 inhaler PRN Reason: difficulty in breathing predniSONE 50 mg PO DAILY #5 tab Is patient prescribed a controlled substance at d/c from ED?: No Referrals: Isabel Arguello MD [Primary Care Provider] - 1-2 days Time of Disposition: 15:38
[2018-03-14 13:51] LABS: ALT 46 U/L (9-52); AST 33 U/L (14-36); Albumin 4.1 g/dL (3.5-5.0); Alkaline Phosphatase 116 U/L (38-126); Anion Gap 12 mmol/L; Blood Urea Nitrogen 6 mg/dL (7-17); Calcium 9.6 mg/dL (8.4-10.2); Carbon Dioxide 21 mmol/L (22-30); Chloride 108 mmol/L (98-107); Glucose 85 mg/dL (74-99); Magnesium 2.1 mg/dL (1.6-2.3); Potassium 3.9 mmol/L (3.5-5.1); Sodium 141 mmol/L (137-145); Total Bilirubin 0.5 mg/dL (0.2-1.3); Total Protein 6.8 g/dL (6.3-8.2)
--- NOTE | 2018-03-14 14:08 | XR ---
EXAMINATION TYPE: XR chest 2V DATE OF EXAM: 03/14/2018 COMPARISON: Chest x-ray October 08, 2016 HISTORY: Chest pain with syncope. TECHNIQUE: Frontal and lateral views of the chest are obtained. FINDINGS: There is no focal air space opacity, pleural effusion, or pneumothorax seen. The cardiac silhouette size is upper limits of normal currently. The osseous structures are intact. Cholecystec vidhi clips are redemonstrated. IMPRESSION: No acute cardiopulmonary process.
[2018-03-14] MEDS ORDERED: ALBUTEROL NEBULIZED 2.5 MG/3 ML INHALATION STA (14:30)
[2018-03-14 15:54] VITALS: BP 121/58; PULSE 106; RESP 18
== END 2018-03-14 15:54 | disposition home or self-care (01) ==
LOC: EC 12:24
DX: J44.9 Chronic obstructive pulmonary disease, unspecified (principal); J40 Bronchitis, not specified as acute or chronic; F31.9 Bipolar disorder, unspecified; F41.9 Anxiety disorder, unspecified; F17.200 Nicotine dependence, unspecified, uncomplicated; Z88.1 Allergy status to other antibiotic agents; Z79.899 Other long term (current) drug therapy; Z90.89 Acquired absence of other organs
CPT/HCPCS: 36415; 94640 ×2; 80053; 83735; 85025; 87040; 71046; 99285; 96374; J2930

== ENCOUNTER 2019-12-01 17:33 | Emergency (ER) | payer OTHER ==
[2019-12-01 17:53] VITALS: TEMP 98
[2019-12-01 18:34] LABS: Basophils % (A) 0 %; Eosinophils # (A) 0.1 k/uL (0-0.7); Eosinophils % (A) 2 %; HCT 30.3 % (34.0-46.0); HGB 11.5 gm/dL (11.4-16.0); Lymphocytes # (A) 2.1 k/uL (1.0-4.8); Lymphocytes % (A) 24 %; MCH 31.4 pg (25.0-35.0); MCHC 37.9 g/dL (31.0-37.0); Mean Platelet Volume 7.8; Monocytes # (A) 0.4 k/uL (0-1.0); Monocytes % (A) 4 %; Neutrophils # (A) 5.9 k/uL (1.3-7.7); Neutrophils % (A) 69 %; Platelet Count 233 k/uL (150-450); RBC 3.65 m/uL (3.80-5.40); RDW 13.4 % (11.5-15.5); WBC 8.6 k/uL (3.8-10.6)
[2019-12-01 18:43] LABS: INR 0.9 (<1.2); Partial Thromboplastin Time 22.4 sec (22.0-30.0); Prothrombin Time 9.8 sec (9.0-12.0)
[2019-12-01 18:44] LABS: ALT 18 U/L (4-34); AST 23 U/L (14-36); African American GFR (CKD) >90 (>60 ml/min/1.73 sqM); Alkaline Phosphatase 75 U/L (38-126); Anion Gap 8 mmol/L; Blood Urea Nitrogen 10 mg/dL (7-17); Carbon Dioxide 24 mmol/L (22-30); Chloride 103 mmol/L (98-107); Glucose 106 mg/dL (74-99); Magnesium 2.1 mg/dL (1.6-2.3); Non-African American GFR(CKD) >90 (>60 ml/min/1.73 sqM); Potassium 3.7 mmol/L (3.5-5.1); Sodium 135 mmol/L (137-145); Total Bilirubin 0.4 mg/dL (0.2-1.3); Total Protein 6.7 g/dL (6.3-8.2)
--- NOTE | 2019-12-01 19:33 | ED ---
General Adult HPI - General Chief complaint: Chest Pain Stated complaint: chest pain Time Seen by Provider: 12/01/19 19:02 Source: patient Mode of arrival: wheelchair - History of Present Illness Initial comments: 39-year-old female patient presents to the emergency department today for evaluation of intermittent chest pain. Patient states she has been having intermittent episodes over the last few weeks. States that the episodes consist of onset of shortness of breath and chest pain pain up into her neck and her upper back. States that she does get dizzy and feel weak during his moments. States she had one a couple of weeks ago where she blacked out. Patient states that she did see her primary care doctor today and was informed this could be heart attack so she presented here for further evaluation. Patient states she did have an episode today around 5 PM. States the last around 10 minutes and then resolved. Patient states this started at rest. Patient has been checking her blood pressure over the weekend and has been elevated which is unusual for her. States that her heart rate has been anywhere from high 80s to the 140s per her fitness watch. She states that she has had TIA in the past is approximately 5 years ago. States that her blood pressures generally run low. Denies history of diabetes. States she does have a family history of cardiac disease in her grandparents. Patient denies any recent rash, cough, nausea, vomiting, diarrhea, constipation, back pain, numbness, tingling, dizziness, weakness, hematuria, dysuria, urinary urgency, urinary frequency, headache, visual changes, or any other complaints. - Related Data Home Medications Medication Instructions Recorded Confirmed Mirtazapine [Remeron] 15 mg PO HS 05/13/15 12/01/19 Vilazodone HCl [Viibryd] 40 mg PO HS 02/21/16 12/01/19 lamoTRIgine [LaMICtal] 100 mg PO HS 02/21/16 12/01/19 Aspirin EC [Ecotrin Low Dose] 81 mg PO DAILY 12/01/19 12/01/19 Allergies Allergy/AdvReac Type Severity Reaction Status Date / Time doxycycline AdvReac Nausea & Verified 12/01/19 20:00 Vomiting Review of Systems ROS Statement: Those systems with pertinent positive or pertinent negative responses have been documented in the HPI. ROS Other: All systems not noted in ROS Statement are negative. Past Medical History Additional Past Medical History / Comment(s): migraines, lympoedema rt leg History of Any Multi-Drug Resistant Organisms: None Reported Past Surgical History: Adenoidectomy, Appendectomy, Cholecystectomy, Orthopedic Surgery, Tonsillectomy Additional Past Surgical History / Comment(s): mass left breast, migrain Past Psychological History: Anxiety, Bipolar, Depression Smoking Status: Current every day smoker Past Alcohol Use History: None Reported Past Drug Use History: Marijuana - Past Family History Mother Family Medical History: No Reported History Father Family Medical History: No Reported History General Exam General appearance: alert, in no apparent distress, other (Physical well- developed, well-nourished adult female patient in no acute distress. Vital signs upon presentation are temperature 98.0F, pulse 89, respirations 18, blood pressure 128/81, pulse ox 99% on room air.) Eye exam: Present: normal appearance, PERRL, EOMI. Absent: scleral icterus, conjunctival injection, periorbital swelling ENT exam: Present: normal exam, normal oropharynx, mucous membranes moist Respiratory exam: Present: normal lung sounds bilaterally. Absent: respiratory distress, wheezes, rales, rhonchi, stridor Cardiovascular Exam: Present: regular rate, normal rhythm, normal heart sounds. Absent: systolic murmur, diastolic murmur, rubs, gallop, clicks GI/Abdominal exam: Present: soft, normal bowel sounds. Absent: distended, tenderness, guarding, rebound, rigid Neurological exam: Present: alert, oriented X3, CN II-XII intact Psychiatric exam: Present: normal affect, normal mood Skin exam: Present: warm, dry, intact, normal color. Absent: rash Course Vital Signs 12/01/19 12/01/19 12/01/19 17:48 19:48 23:13 Temperature 98 F Pulse Rate 89 61 69 Respiratory 18 15 18 Rate Blood Pressure 128/81 125/88 115/77 O2 Sat by Pulse 99 99 98 Oximetry EKG Findings - EKG Comments: EKG Findings:: EKG obtained at 1757 shows sinus rhythm with a sinus arrhythmia. Ventricular rate is 78, IN interval 150, QRS duration 78, QT 376, QTC 428. No evidence of ST elevation or depression. Medical Decision Making - Medical Decision Making 39-year-old female patient presents to the emergency department today for evaluation of chest pain. She reports intermittent episodes over the last couple of weeks. She did have an episode today that lasted around 10 minutes starting at 5:00. Physical examination is unremarkable. She is resting comfortably in bed. Lungs are clear to auscultation with good air movement. Labs reviewed and are unremarkable. Chest x-ray shows no acute cardio pulmonary process. EKG was reviewed, compared to previous from 2017 it did appear to be consistent. We did perform a second troponin approximately 3 hours after the first this was also negative. I did discuss findings and results with the patient. She'll be discharged home to follow-up with her primary care physician and cardiology in 1-2 days. Return parameters were discussed in detail. She verbalizes understanding and agrees with this plan. - Lab Data Result diagrams: 12/01/19 18:07 12/01/19 18:03 Lab Results 12/01/19 12/01/19 12/01/19 Range/Units 18:03 18:03 18:03 WBC (3.8-10.6) k/uL RBC (3.80-5.40) m/uL Hgb (11.4-16.0) gm/dL Hct (34.0-46.0) % MCV (80.0-100.0) fL MCH (25.0-35.0) pg MCHC (31.0-37.0) g/dL RDW (11.5-15.5) % Plt Count (150-450) k/uL Neutrophils % % Lymphocytes % % Monocytes % % Eosinophils % % Basophils % % Neutrophils # (1.3-7.7) k/uL Lymphocytes # (1.0-4.8) k/uL Monocytes # (0-1.0) k/uL Eosinophils # (0-0.7) k/uL Basophils # (0-0.2) k/uL PT 9.8 (9.0-12.0) sec INR 0.9 (<1.2) APTT 22.4 (22.0-30.0) sec Sodium 135 L (137-145) mmol/L Potassium 3.7 (3.5-5.1) mmol/L Chloride 103 (98-107) mmol/L Carbon Dioxide 24 (22-30) mmol/L Anion Gap 8 mmol/L BUN 10 (7-17) mg/dL Creatinine 0.61 (0.52-1.04) mg/dL Est GFR (CKD-EPI)AfAm >90 (>60 ml/min/1.73 sqM) Est GFR (CKD-EPI)NonAf >90 (>60 ml/min/1.73 sqM) Glucose 106 H (74-99) mg/dL Calcium 9.0 (8.4-10.2) mg/dL Magnesium 2.1 (1.6-2.3) mg/dL Total Bilirubin 0.4 (0.2-1.3) mg/dL AST 23 (14-36) U/L ALT 18 (4-34) U/L Alkaline Phosphatase 75 (38-126) U/L Troponin I <0.012 (0.000-0.034) ng/mL Total Protein 6.7 (6.3-8.2) g/dL Albumin 4.0 (3.5-5.0) g/dL Urine Color Urine Appearance (Clear) Urine pH (5.0-8.0) Ur Specific [place] (1.001-1.035) Urine Protein (Negative) Urine Glucose (UA) (Negative) Urine Ketones (Negative) Urine Blood (Negative) Urine Nitrite (Negative) Urine Bilirubin (Negative) Urine Urobilinogen (<2.0) mg/dL Ur Leukocyte Esterase (Negative) Urine RBC (0-5) /hpf Urine WBC (0-5) /hpf Ur Squamous Epith Cells (0-4) /hpf Urine Bacteria (None) /hpf Urine Mucus (None) /hpf Urine HCG, Qual (Not Detectd) 12/01/19 12/01/19 12/01/19 Range/Units 18:07 19:13 19:13 WBC 8.6 (3.8-10.6) k/uL RBC 3.65 L (3.80-5.40) m/uL Hgb 11.5 (11.4-16.0) gm/dL Hct 30.3 L (34.0-46.0) % MCV 83.0 (80.0-100.0) fL MCH 31.4 (25.0-35.0) pg MCHC 37.9 H (31.0-37.0) g/dL RDW 13.4 (11.5-15.5) % Plt Count 233 (150-450) k/uL Neutrophils % 69 % Lymphocytes % 24 % Monocytes % 4 % Eosinophils % 2 % Basophils % 0 % Neutrophils # 5.9 (1.3-7.7) k/uL Lymphocytes # 2.1 (1.0-4.8) k/uL Monocytes # 0.4 (0-1.0) k/uL Eosinophils # 0.1 (0-0.7) k/uL Basophils # 0.0 (0-0.2) k/uL PT (9.0-12.0) sec INR (<1.2) APTT (22.0-30.0) sec Sodium (137-145) mmol/L Potassium (3.5-5.1) mmol/L Chloride (98-107) mmol/L Carbon Dioxide (22-30) mmol/L Anion Gap mmol/L BUN (7-17) mg/dL Creatinine (0.52-1.04) mg/dL Est GFR (CKD-EPI)AfAm (>60 ml/min/1.73 sqM) Est GFR (CKD-EPI)NonAf (>60 ml/min/1.73 sqM) Glucose (74-99) mg/dL Calcium (8.4-10.2) mg/dL Magnesium (1.6-2.3) mg/dL Total Bilirubin (0.2-1.3) mg/dL AST (14-36) U/L ALT (4-34) U/L Alkaline Phosphatase (38-126) U/L Troponin I (0.000-0.034) ng/mL Total Protein (6.3-8.2) g/dL Albumin (3.5-5.0) g/dL Urine Color Light Yellow Urine Appearance Clear (Clear) Urine pH 6.5 (5.0-8.0) Ur Specific [place] 1.007 (1.001-1.035) Urine Protein Negative (Negative) Urine Glucose (UA) Negative (Negative) Urine Ketones Negative (Negative) Urine Blood Trace H (Negative) Urine Nitrite Negative (Negative) Urine Bilirubin Negative (Negative) Urine Urobilinogen <2.0 (<2.0) mg/dL Ur Leukocyte Esterase Negative (Negative) Urine RBC 3 (0-5) /hpf Urine WBC <1 (0-5) /hpf Ur Squamous Epith Cells 1 (0-4) /hpf Urine Bacteria Rare H (None) /hpf Urine Mucus Rare H (None) /hpf Urine HCG, Qual Not Detected (Not Detectd) 12/01/19 Range/Units 21:37 WBC (3.8-10.6) k/uL RBC (3.80-5.40) m/uL Hgb (11.4-16.0) gm/dL Hct (34.0-46.0) % MCV (80.0-100.0) fL MCH (25.0-35.0) pg MCHC (31.0-37.0) g/dL RDW (11.5-15.5) % Plt Count (150-450) k/uL Neutrophils % % Lymphocytes % % Monocytes % % Eosinophils % % Basophils % % Neutrophils # (1.3-7.7) k/uL Lymphocytes # (1.0-4.8) k/uL Monocytes # (0-1.0) k/uL Eosinophils # (0-0.7) k/uL Basophils # (0-0.2) k/uL PT (9.0-12.0) sec INR (<1.2) APTT (22.0-30.0) sec Sodium (137-145) mmol/L Potassium (3.5-5.1) mmol/L Chloride (98-107) mmol/L Carbon Dioxide (22-30) mmol/L Anion Gap mmol/L BUN (7-17) mg/dL Creatinine (0.52-1.04) mg/dL Est GFR (CKD-EPI)AfAm (>60 ml/min/1.73 sqM) Est GFR (CKD-EPI)NonAf (>60 ml/min/1.73 sqM) Glucose (74-99) mg/dL Calcium (8.4-10.2) mg/dL Magnesium (1.6-2.3) mg/dL Total Bilirubin (0.2-1.3) mg/dL AST (14-36) U/L ALT (4-34) U/L Alkaline Phosphatase (38-126) U/L Troponin I <0.012 (0.000-0.034) ng/mL Total Protein (6.3-8.2) g/dL Albumin (3.5-5.0) g/dL Urine Color Urine Appearance (Clear) Urine pH (5.0-8.0) Ur Specific [place] (1.001-1.035) Urine Protein (Negative) Urine Glucose (UA) (Negative) Urine Ketones (Negative) Urine Blood (Negative) Urine Nitrite (Negative) Urine Bilirubin (Negative) Urine Urobilinogen (<2.0) mg/dL Ur Leukocyte Esterase (Negative) Urine RBC (0-5) /hpf Urine WBC (0-5) /hpf Ur Squamous Epith Cells (0-4) /hpf Urine Bacteria (None) /hpf Urine Mucus (None) /hpf Urine HCG, Qual (Not Detectd) - Radiology Data Radiology results: report reviewed, image reviewed Two-view x-ray of the chest is obtained. Report was reviewed in its entirety. Impression by Dr. Vasquez reads normal chest with no change. Disposition Clinical Impression: Chest pain Disposition: HOME SELF-CARE Condition: Good Instructions (If sedation given, give patient instructions): Chest Pain (ED) Additional Instructions: Follow-up with your primary care physician for recheck in 1-2 days. Follow up with cardiology for further evaluation as soon as possible. Return to the emergency department immediately for any new, worsening, or concerning symptoms. Is patient prescribed a controlled substance at d/c from ED?: No Referrals: Isabel Arguello MD [Primary Care Provider] - 1-2 days Harlan De La Cruz MD [STAFF PHYSICIAN] - 1-2 days Time of Disposition: 22:38
--- NOTE | 2019-12-01 20:19 | XR ---
EXAMINATION TYPE: XR chest 2V DATE OF EXAM: 12/01/2019 COMPARISON: 03/14/2018 HISTORY: Chest pain TECHNIQUE: FINDINGS: Heart and mediastinum are normal. Lungs are clear. Diaphragm is normal. Bony thorax appears normal. IMPRESSION: Normal chest. No change.
[2019-12-01 20:27] LABS: Appearance,Urine Clear (Clear); Bacteria,Urine Rare /hpf; Bilirubin,Urine Negative (Negative); Blood,Urine Trace (Negative); Color,Urine Light Yellow; Glucose,Urine (UA) Negative (Negative); Ketones,Urine Negative (Negative); Leukocyte Esterase,Urine Negative (Negative); Mucus,Urine Rare /hpf; Nitrite,Urine Negative (Negative); PH, Urine 6.5 (5.0-8.0); Protein,Urine Negative (Negative); RBC,Urine 3 /hpf (0-5); Specific Gravity,Urine 1.007 (1.001-1.035); Squamous Epithelial Cell,Urine 1 /hpf (0-4); Urobilinogen,Urine <2.0 mg/dL (<2.0); WBC,Urine <1 /hpf (0-5)
[2019-12-01 23:14] VITALS: BP 115/77; PULSE 69; RESP 18
== END 2019-12-01 23:07 | disposition home or self-care (01) ==
LOC: EC 17:33
DX: R07.9 Chest pain, unspecified (principal); R06.02 Shortness of breath; R42 Dizziness and giddiness; F41.9 Anxiety disorder, unspecified; F31.9 Bipolar disorder, unspecified; G43.909 Migraine, unspecified, not intractable, without status migrainosus; Z79.899 Other long term (current) drug therapy; F17.200 Nicotine dependence, unspecified, uncomplicated; Z88.1 Allergy status to other antibiotic agents; Z86.73 Personal history of transient ischemic attack (TIA), and cerebral infarction without residual deficits
CPT/HCPCS: 36415; 71046; 80053; 81001; 81025; 83735; 84484; 85025; 85610; 85730; 93005; 99285

== ENCOUNTER 2020-09-12 11:08 | Emergency (ER) | payer BC, OTHER ==
[2020-09-12 12:06] VITALS: BP 106/60; PULSE 96; TEMP 98.2
--- NOTE | 2020-09-12 12:42 | XR ---
EXAMINATION TYPE: XR chest 2V DATE OF EXAM: 09/12/2020 COMPARISON: 12/01/2019 INDICATION: Short of breath TECHNIQUE: Frontal and lateral views of the chest are obtained. FINDINGS: The heart size is normal. The pulmonary vasculature is normal. There is a small stable nodule in the right medial lung base. Small nodule may be along the left hear t margin. Suspicious infiltrates are not evident.. IMPRESSION: 1. No acute pulmonary process. 2. Chronic appearing nodules better visualized currently. Continued follow-up is recommended. Follow- up exam in 6 months can be performed.
[2020-09-12] MEDS ORDERED: ONDANSETRON 4 MG ODT STARTER PACK 2 TAB BTL PO STA (13:02)
[2020-09-12] MEDS ORDERED: ONDANSETRON ODT 4 MG TAB PO STA (13:02)
--- NOTE | 2020-09-12 13:06 | ED ---
General Adult HPI - General Chief complaint: Shortness of Breath Stated complaint: Cough, JIL Time Seen by Provider: 09/12/20 12:53 Source: patient Mode of arrival: ambulatory Limitations: no limitations - History of Present Illness Initial comments: Dictation was produced using [employer] dictation software. please excuse any grammatical, word or spelling errors. This patient was cared for during a federal and state declared state of emergency secondary to Covid 19 Chief Complaint: 40-year-old male past medical history migraines and lymphedema presents emergency department for cough, congestion. History of Present Illness: Is a 40-year-old female she states she has past nuchal history migraines and lymphedema. Patient states she got the Ba & Ba vaccine on September 07 which was 5 days ago. Shortly after she began developing symptoms of cough, congestion and fever. Patient came to the emergency department for evaluation. Patient denies any chest pain. She is having a nonproductive cough. She has not been exposed to anybody with obvious coronavirus symptoms. The ROS documented in this emergency department record has been reviewed and confirmed by me. Those systems with pertinent positive or negative responses have been documented in the HPI. All other systems are other negative and/or noncontributory. PHYSICAL EXAM: General Impression: Alert and oriented x3, not in acute distress, coughing HEENT: Normocephalic atraumatic, extra-ocular movements intact, pupils equal and reactive to light bilaterally, mucous membranes moist. Cardiovascular: Heart regular rate and rhythm Chest: Able to complete full sentences, no retractions, no tachypnea Abdomen: abdomen soft, non-tender, non-distended, no organomegaly Musculoskeletal: Pulses present and equal in all extremities, no peripheral edema Motor: no focal deficits noted Neurological: CN II-XII grossly intact, no focal motor or sensory deficits noted Skin: Intact with no visualized rashes Psych: Normal affect and mood ED course: 40-year-old female with symptoms of coronavirus. Coronavirus test is positive. Vital signs upon arrival are within acceptable limits. Patient complaining of 4 oral intake. Patient's given Zofran ODT. Patient is not hypoxic. She is 96% on room air. Chest x-ray is clear of any acute processes.. Patient will be discharged with prescription for oral Zofran. Patient is not a candidate for monoclonal antibodies because her BMI is not high enough, and she had a really received vaccination. - Related Data Home Medications Medication Instructions Recorded Confirmed Mirtazapine [Remeron] 15 mg PO HS 05/13/15 12/01/19 Vilazodone HCl [Viibryd] 40 mg PO HS 02/21/16 12/01/19 lamoTRIgine [LaMICtal] 100 mg PO HS 02/21/16 12/01/19 Aspirin EC [Ecotrin Low Dose] 81 mg PO DAILY 12/01/19 12/01/19 Previous Rx's Medication Instructions Recorded Ondansetron [Zofran ODT] 4 mg PO Q8HR PRN 7 Days #21 tab 09/12/20 Allergies Allergy/AdvReac Type Severity Reaction Status Date / Time doxycycline AdvReac Nausea & Verified 09/12/20 12:06 Vomiting Review of Systems ROS Statement: Those systems with pertinent positive or pertinent negative responses have been documented in the HPI. ROS Other: All systems not noted in ROS Statement are negative. Past Medical History Additional Past Medical History / Comment(s): migraines, lympoedema rt leg History of Any Multi-Drug Resistant Organisms: None Reported Past Surgical History: Adenoidectomy, Appendectomy, Cholecystectomy, Orthopedic Surgery, Tonsillectomy Additional Past Surgical History / Comment(s): mass left breast, migrain Past Psychological History: Anxiety, Bipolar, Depression Smoking Status: Former smoker Past Alcohol Use History: None Reported Past Drug Use History: Marijuana - Past Family History Mother Family Medical History: No Reported History Father Family Medical History: No Reported History General Exam Limitations: no limitations Course Vital Signs 09/12/20 12:03 Temperature 98.2 F Pulse Rate 96 Respiratory 24 Rate Blood Pressure 106/60 O2 Sat by Pulse 96 Oximetry Medical Decision Making - Lab Data Lab Results 09/12/20 Range/Units 12:08 Coronavirus (PCR) Detected A (Not Detectd) Disposition Clinical Impression: Coronavirus infection Disposition: HOME SELF-CARE Condition: Fair Instructions (If sedation given, give patient instructions): Coronavirus Disease 2019 (COVID-19) Additional Instructions: Today you were evaluated for symptoms consistent with upper respiratory infection. Today you tested positive for Covid 19. Your are stable for discharge, however it is instructed to to seek immediate medical attention especially if you develop worsening symptoms especially respiratory distress. If possible, try to obtain a pulse oximeter and monitor your oxygen at home. In the meantime please remain in quarantine for 14 days. For any other questions please contact [facility] for here in emergency department or [facility] at [phone] Prescriptions: Ondansetron [Zofran ODT] 4 mg PO Q8HR PRN 7 Days #21 tab PRN Reason: nausea, vomiting Is patient prescribed a controlled substance at d/c from ED?: No Referrals: Isabel Arguello MD [Primary Care Provider] - 1-2 days Time of Disposition: 13:05
[2020-09-12 13:19] VITALS: RESP 20
== END 2020-09-12 13:24 | disposition home or self-care (01) ==
LOC: EC 11:08
DX: B34.2 Coronavirus infection, unspecified (principal); F32.9 Major depressive disorder, single episode, unspecified; F17.200 Nicotine dependence, unspecified, uncomplicated; F12.90 Cannabis use, unspecified, uncomplicated; Z90.49 Acquired absence of other specified parts of digestive tract
CPT/HCPCS: 87635; 71046; 99283; S0119

== ENCOUNTER 2023-03-30 02:42 | Emergency (ER) | payer OTHER ==
[2023-03-30] MEDS ORDERED: KETOROLAC 15 MG/ML 1 ML VIAL IM STA (03:01)
--- NOTE | 2023-03-30 03:02 | ED ---
General Adult HPI - General Chief complaint: Extremity Problem,Nontraumatic Stated complaint: Left arm and shoulder pain Time Seen by Provider: 03/30/23 02:56 Source: patient, RN notes reviewed, old records reviewed Mode of arrival: ambulatory Limitations: no limitations - History of Present Illness Initial comments: 43-year-old female presenting for evaluation of left shoulder pain. Patient states has been hurting for the past several days. She states it is worse with any movement. Pain is predominantly in the lateral shoulder. She denies a kno wn injury or fall. She states that she has been taking Tylenol and Aleve with minimal relief. No central chest pain. No difficulty breathing. No neck pain. No fever. - Related Data Home Medications Medication Instructions Recorded Confirmed Mirtazapine [Remeron] 15 mg PO HS 05/13/15 12/01/19 Vilazodone HCl [Viibryd] 40 mg PO HS 02/21/16 12/01/19 lamoTRIgine [LaMICtal] 100 mg PO HS 02/21/16 12/01/19 Aspirin EC [Ecotrin Low Dose] 81 mg PO DAILY 12/01/19 12/01/19 Previous Rx's Medication Instructions Recorded Ondansetron [Zofran ODT] 4 mg PO Q8HR PRN 7 Days #21 tab 09/12/20 Indomethacin [Indocin] 50 mg PO TID #30 capsule 03/01/23 Allergies Allergy/AdvReac Type Severity Reaction Status Date / Time doxycycline AdvReac Nausea & Verified 03/30/23 02:44 Vomiting Review of Systems ROS Statement: Those systems with pertinent positive or pertinent negative responses have been documented in the HPI. ROS Other: All systems not noted in ROS Statement are negative. Past Medical History Additional Past Medical History / Comment(s): migraines, lympoedema rt leg History of Any Multi-Drug Resistant Organisms: None Reported Past Surgical History: Adenoidectomy, Appendectomy, Cholecystectomy, Orthopedic Surgery, Tonsillectomy Additional Past Surgical History / Comment(s): mass left breast, migrain Past Psychological History: Anxiety, Bipolar, Depression Smoking Status: Current every day smoker Past Alcohol Use History: Rare Past Drug Use History: Marijuana - Past Family History Mother Family Medical History: No Reported History Father Family Medical History: No Reported History General Exam Limitations: no limitations General appearance: alert, in no apparent distress Head exam: Present: atraumatic, normocephalic Eye exam: Present: normal appearance, PERRL ENT exam: Present: normal exam Neck exam: Present: normal inspection. Absent: tenderness, meningismus Respiratory exam: Present: normal lung sounds bilaterally. Absent: respiratory distress, wheezes Cardiovascular Exam: Present: regular rate, normal rhythm GI/Abdominal exam: Present: soft. Absent: distended Extremities exam: Present: tenderness (Tenderness over the lateral aspect of his shoulder in the before meals joint). Absent: full ROM (Decreased range of mot ion of the left shoulder secondary to pain. Distal pulses intact, normal manufacturing coordinator strength.) Neurological exam: Present: alert, oriented X3 Psychiatric exam: Present: normal affect, normal mood Skin exam: Present: warm, dry, intact. Absent: cyanosis, diaphoretic Course Vital Signs 03/30/23 02:44 Temperature 97.7 F Pulse Rate 77 Respiratory 20 Rate Blood Pressure 143/79 O2 Sat by Pulse 95 Oximetry Medical Decision Making - Medical Decision Making Was pt. sent in by a medical professional or institution (JAN Carl, TYPIST, urgent care, hospital, or [facility]...) When possible be specific @ -No Did you speak to anyone other than the patient for history (EMS, parent, family, police, friend...)? What history was obtained from this source @ -No Did you review nursing and triage notes (agree or disagree)? Why? @ -I reviewed and agree with nursing and triage notes Were old charts reviewed (outside hosp., previous admission, EMS record, old EKG, old radiological studies, urgent care reports/EKG's, [facility] records)? Report findings @ -No old charts were reviewed Differential Diagnosis (chest pain, altered mental status, abdominal pain women, abdominal pain men, vaginal bleeding, weakness, fever, dyspnea, syncope, headache, dizziness, GI bleed, back pain, seizure, CVA, palpatations, mental health, musculoskeletal)? @ Differential Musculoskeletal Muscular strain, contusion, ligament sprain, fracture, arthritis, septic arthritis, bursitis, cellulitis, muscle spasm, nerve compression, DVT, arterial occlusion, herpes zoster, electrolyte abnormality, tumor.... This is not meant to be in all inclusive list EKG interpreted by me (3pts min.). @ -As above X-rays interpreted by me (1pt min.). @ Left shoulder x-ray negative for fracture or dislocation, no acute findings. CT interpreted by me (1pt min.). @ -None done U/S interpreted by me (1pt. min.). @ -None done What testing was considered but not performed or refused? (CT, X-rays, U/S, labs)? Why? @ -None What meds were considered but not given or refused? Why? @ -None Did you discuss the management of the patient with other professionals (professionals i.e. , PA, TYPIST, lab, RT, psych nurse, social work specialist, stationary equipment mechanic, teacher, parking enforcement officer, sample case porter)? Give summary @ -No Was smoking cessation discussed for >3mins.? @ -No Was critical care preformed (if so, how long)? @ -No Were there social determinants of health that impacted care today? How? (Homelessness, low income, unemployed, alcoholism, drug addiction, transportation, low edu. Level, literacy, decrease access to med. care, care home, rehab)? @ -No Was there de-escalation of care discussed even if they declined (Discuss DNR or withdrawal of care, Hospice)? DNR status @ -No What co-morbidities impacted this encounter? (DM, HTN, Smoking, COPD, CAD, Cancer, CVA, ARF, Chemo, Hep., AIDS, mental health diagnosis, sleep apnea, morbid obesity)? @ -None Was patient admitted / discharged? Hospital course, mention meds given and route, prescriptions, significant lab abnormalities, going to OR and other pertinent info. @ -[43-year-old female with left shoulder pain, pain with range of motion. Patient afebrile Likely related to muscle strain. X-ray negative for acute bony abnormality, no dislocation or fracture. Patient given Toradol in the emergency department. Patient should monitor symptoms and follow closely with her primary care provider. Undiagnosed new problem with uncertain prognosis? @ -No Drug Therapy requiring intensive monitoring for toxicity (Heparin, Nitro, Insulin, Cardizem)? @ -No Were any procedures done? @ -No Diagnosis/symptom? @ -[Shoulder pain Acute, or Chronic, or Acute on Chronic? @ -[Acute Uncomplicated (without systemic symptoms) or Complicated (systemic symptoms)? @ -default Side effects of treatment? @ -No Exacerbation, Progression, or Severe Exacerbation? @ -No Poses a threat to life or bodily function? How? (Chest pain, USA, PR, pneumonia, PE, COPD, DKA, ARF, appy, cholecystitis, CVA, Diverticulitis, Homicidal, Suici michael, threat to staff... and all critical care pts) @ -[Low risk at this time Disposition Clinical Impression: Shoulder strain Disposition: HOME SELF-CARE Condition: Fair Instructions (If sedation given, give patient instructions): Shoulder Pain (ED) Is patient prescribed a controlled substance at d/c from ED?: No Referrals: Iasbel Arguello MD [Primary Care Provider] - 1-2 days Time of Disposition: 03:27
[2023-03-30 03:04] VITALS: BP 143/79; PULSE 77; RESP 20; TEMP 97.7
--- NOTE | 2023-03-30 04:14 | XR ---
EXAM: XR Left Shoulder Complete, 2 or More Views CLINICAL HISTORY: ITS.REASON XR Reason: pain TECHNIQUE: Two or more views of the left shoulder. COMPARISON: No relevant prior studies available. FINDINGS: Bones/joints: Unremarkable. No acute fracture. No dislocation. Soft tissues: No significant soft tissue abnormality. No radiopaque foreign body or subcutaneous emphysema. IMPRESSION: No acute findings in the left shoulder.
== END 2023-03-30 03:56 | disposition home or self-care (01) ==
LOC: EC 02:42
DX: S46.912A Strain of unspecified muscle, fascia and tendon at shoulder and upper arm level, left arm, initial encounter (principal); F41.9 Anxiety disorder, unspecified; F31.9 Bipolar disorder, unspecified; F12.90 Cannabis use, unspecified, uncomplicated; Z88.1 Allergy status to other antibiotic agents; Z79.82 Long term (current) use of aspirin; Z79.899 Other long term (current) drug therapy; X50.9XXA Other and unspecified overexertion or strenuous movements or postures, initial encounter
CPT/HCPCS: 73030; 99283; 96372; J1885

== ENCOUNTER 2023-07-10 12:21 | Emergency (ER) | payer BC, OTHER ==
[2023-07-10 12:35] VITALS: BP 131/86; PULSE 85; RESP 16; TEMP 98
--- NOTE | 2023-07-10 12:41 | ED ---
General Adult HPI - General Chief complaint: Skin/Abscess/Foreign Body Stated complaint: MOUTH PAIN,ABSCESS Time Seen by Provider: 07/10/23 12:30 Source: patient, RN notes reviewed, old records reviewed Mode of arrival: ambulatory Limitations: no limitations - History of Present Illness Initial comments: 43-year-old female with 24-hour history of lower right-sided dental pain and slight swelling in the lip. Patient denies fever. She states she does have poor dentition but has not been able to see a dentist. - Related Data Home Medications Medication Instructions Recorded Confirmed Mirtazapine [Remeron] 15 mg PO HS 05/13/15 12/01/19 Vilazodone HCl [Viibryd] 40 mg PO HS 02/21/16 12/01/19 lamoTRIgine [LaMICtal] 100 mg PO HS 02/21/16 12/01/19 Aspirin EC [Ecotrin Low Dose] 81 mg PO DAILY 12/01/19 12/01/19 Previous Rx's Medication Instructions Recorded Ondansetron [Zofran ODT] 4 mg PO Q8HR PRN 7 Days #21 tab 09/12/20 Indomethacin [Indocin] 50 mg PO TID #30 capsule 03/01/23 Amoxic-Pot Clav 875-125Mg 1 tab PO Q12HR 10 Days #20 tab 07/10/23 [Augmentin 875-125] Allergies Allergy/AdvReac Type Severity Reaction Status Date / Time doxycycline AdvReac Nausea & Verified 07/10/23 12:27 Vomiting Review of Systems ROS Statement: Those systems with pertinent positive or pertinent negative responses have been documented in the HPI. ROS Other: All systems not noted in ROS Statement are negative. Past Medical History Additional Past Medical History / Comment(s): migraines, lympoedema rt leg History of Any Multi-Drug Resistant Organisms: None Reported Past Surgical History: Adenoidectomy, Appendectomy, Cholecystectomy, Orthopedic Surgery, Tonsillectomy Additional Past Surgical History / Comment(s): mass left breast, migrain Past Psychological History: Anxiety, Bipolar, Depression Smoking Status: Current every day smoker Past Alcohol Use History: Rare Past Drug Use History: Marijuana - Past Family History Mother Family Medical History: No Reported History Father Family Medical History: No Reported History General Exam Limitations: no limitations General appearance: alert, in no apparent distress Head exam: Present: atraumatic, normocephalic Eye exam: Present: normal appearance, PERRL ENT exam: Present: other (Poor dentition with significant dental caries throughout, there is swelling at the right lower gingiva without a drainable abscess. There is some tenderness in the lip.) Respiratory exam: Absent: respiratory distress, stridor Cardiovascular Exam: Present: regular rate, normal rhythm GI/Abdominal exam: Present: soft. Absent: distended, tenderness, guarding Neurological exam: Present: alert, oriented X3 Skin exam: Present: warm, dry, intact Course Vital Signs 07/10/23 12:24 Temperature 98 F Pulse Rate 85 Respiratory 16 Rate Blood Pressure 131/86 O2 Sat by Pulse 96 Oximetry Medical Decision Making - Medical Decision Making Was pt. sent in by a medical professional or institution (JAN Carl, EMPLOYMENT CASE MANAGER, urgent care, hospital, or prison...) When possible be specific @ -No Did you speak to anyone other than the patient for history (EMS, parent, family, police, friend...)? What history was obtained from this source @ -No Did you review nursing and triage notes (agree or disagree)? Why? @ -I reviewed and agree with nursing and triage notes Were old charts reviewed (outside hosp., previous admission, EMS record, old EKG, old radiological studies, urgent care reports/EKG's, prison records)? Report findings @ -No old charts were reviewed Differential Diagnosis (chest pain, altered mental status, abdominal pain women, abdominal pain men, vaginal bleeding, weakness, fever, dyspnea, syncope, headache, dizziness, GI bleed, back pain, seizure, CVA, palpatations, mental health, musculoskeletal)? @ -[dental abscess, Elvis's angina, facial cellulitis EKG interpreted by me (3pts min.). @ -As above X-rays interpreted by me (1pt min.). @ -None done CT interpreted by me (1pt min.). @ -None done U/S interpreted by me (1pt. min.). @ -None done What testing was considered but not performed or refused? (CT, X-rays, U/S, labs)? Why? @ -[N consider laboratory testing and CT imaging however the patient is well- appearing, afebrile and has only had symptoms for the past 24 hours. What meds were considered but not given or refused? Why? @ -None Did you discuss the management of the patient with other professionals (professionals i.e. , PA, EMPLOYMENT CASE MANAGER, lab, RT, psych nurse, healthcare social worker, kier hand, teacher, preventive medicine officer, employment case manager)? Give summary @ -No Was smoking cessation discussed for >3mins.? @ -No Was critical care preformed (if so, how long)? @ -No Were there social determinants of health that impacted care today? How? (Homelessness, low income, unemployed, alcoholism, drug addiction, transportation, low edu. Level, literacy, decrease access to med. care, group home, rehab)? @ -No Was there de-escalation of care discussed even if they declined (Discuss DNR or withdrawal of care, Hospice)? DNR status @ -No What co-morbidities impacted this encounter? (DM, HTN, Smoking, COPD, CAD, Cancer, CVA, ARF, Chemo, Hep., AIDS, mental health diagnosis, sleep apnea, morbid obesity)? @ -None Was patient admitted / discharged? Hospital course, mention meds given and route, prescriptions, significant lab abnormalities, going to OR and other pertinent info. @Patient will be covered with antibiotics with strict return parameters. She will monitor for fever. She will follow-up with her primary and she will need a dental evaluation. Undiagnosed new problem with uncertain prognosis? @ -No Drug Therapy requiring intensive monitoring for toxicity (Heparin, Nitro, Insulin, Cardizem)? @ -No Were any procedures done? @ -No Diagnosis/symptom? @Toothache, dental abscess Acute, or Chronic, or Acute on Chronic? @Acute Uncomplicated (without systemic symptoms) or Complicated (systemic symptoms)? @ -Default Side effects of treatment? @ -No Exacerbation, Progression, or Severe Exacerbation? @ -No Poses a threat to life or bodily function? How? (Chest pain, USA, CT, pneumonia, PE, COPD, DKA, ARF, appy, cholecystitis, CVA, Diverticulitis, Homicidal, Suicidal, threat to staff... and all critical care pts) @ -Low risk at this time Disposition Clinical Impression: Toothache, Dental abscess Disposition: HOME SELF-CARE Condition: Fair Instructions (If sedation given, give patient instructions): Toothache (ED), Dental Abscess (ED) Additional Instructions: Please monitor symptoms and return with worsening symptoms, development of fever. Please have an evaluation by a dentist. Prescriptions: Amoxic-Pot Clav 875-125Mg [Augmentin 875-125] 1 tab PO Q12HR 10 Days #20 tab Is patient prescribed a controlled substance at d/c from ED?: No Referrals: Isabel Arguello MD [Primary Care Provider] - 1-2 days Time of Disposition: 12:41
== END 2023-07-10 12:55 | disposition home or self-care (01) ==
LOC: EC 12:21
DX: K04.7 Periapical abscess without sinus (principal); F41.9 Anxiety disorder, unspecified; F31.9 Bipolar disorder, unspecified; F17.200 Nicotine dependence, unspecified, uncomplicated; F12.90 Cannabis use, unspecified, uncomplicated; Z79.899 Other long term (current) drug therapy; Z88.1 Allergy status to other antibiotic agents
CPT/HCPCS: 99282

== ENCOUNTER → 2023-08-13 | Outpatient (CLI) | payer BC, OTHER ==
--- NOTE | 2023-08-13 12:53 | CT ---
EXAMINATION TYPE: CT abdomen w con DATE OF EXAM: 08/13/2023 COMPARISON: None available. HISTORY: Right flank pain. CT DLP: 1064 mGycm Automated exposure control for dose reduction was used. TECHNIQUE: Helical acquisition of images was performed from the lung bases through the top of iliac crest to include entire abdomen. CONTRAST: Performed with Oral Contrast and with IV Contrast, patient injected with 100 mL of Isovue 300. FINDINGS: LUNG BASES: No significant abnormality is appreciated. LIVER/GB: No suspicious liver lesions are seen in the gallbladder is absent. PANCREAS: No significant abnormality is seen. SPLEEN: No significant abnormality is seen. ADRENALS: No significant abnormality is seen. KIDNEYS: 1.6 cm cyst in the inferior pole the right kidney. 1.5 cm cyst in the inferior pole of the l eft kidney. The kidneys otherwise appear unremarkable. BOWEL: No significant abnormality is seen. LYMPH NODES: No significant abnormality is seen. OSSEOUS STRUCTURES: No significant abnormality is seen. FREE AIR: No free air is visualized. OTHER: IMPRESSION: NO ACUTE PROCESS SEEN WITHIN THE ABDOMEN.
== END | disposition home or self-care (01) ==
LOC: RADCTMAIN 11:01
PROVIDERS: ATTEND Family Medicine
DX: I10 Essential (primary) hypertension (principal); R79.89 Other specified abnormal findings of blood chemistry; R10.9 Unspecified abdominal pain
CPT/HCPCS: 74160; Q9967

== ENCOUNTER → 2024-06-30 | Outpatient (CLI) | payer SELFPAY ==
[2024-06-30 19:10] LABS: ALT 40 U/L (8-44); AST 29 U/L (13-35); Albumin 4.4 g/dL (3.8-4.9); Albumin/Globulin Ratio 1.69 Ratio (1.60-3.17); Alkaline Phosphatase 101 U/L (41-126); Blood Urea Nitrogen 12.6 mg/dL (9.0-27.0); Calcium 9.6 mg/dL (8.7-10.3); Carbon Dioxide 31.1 mmol/L (21.6-31.8); Chloride 106 mmol/L (96-109); Globulin 2.6 g/dL (1.6-3.3); Glucose 88 mg/dL (70-110); Magnesium 2.2 mg/dL (1.5-2.4); Phosphorus 4.1 mg/dL (2.4-5.1); Potassium 3.8 mmol/L (3.5-5.5); Sodium 149 mmol/L (135-145); Total Bilirubin 0.2 mg/dL (0.3-1.2)
[2024-06-30 19:15] LABS: Basophils # (A) 0.06 X 10*3/uL (0.00-0.10); Basophils % (A) 0.7 %; Eosinophils # (A) 0.26 X 10*3/uL (0.04-0.35); Eosinophils % (A) 2.8 %; HCT 39.9 % (37.2-46.3); HGB 12.7 g/dL (12.0-15.0); Lymphocytes % (A) 28.4 %; MCH 27.9 pg (27.0-32.0); MCHC 31.8 g/dL (32.0-37.0); MCV 87.5 FL (80.0-97.0); Mean Platelet Volume 10.6 FL (9.5-12.2); Monocytes # (A) 0.65 X 10*3/uL (0.20-1.00); Monocytes % (A) 7.1 %; NRBC Per 100 WBC 0 X 10*3/uL (0.00-0.01); Neutrophils # (A) 5.55 X 10*3/uL (1.80-7.70); Neutrophils % (A) 60.5 %; Platelet Count 264 X 10*3/uL (140-440); RBC 4.56 X 10*6/uL (4.10-5.20); RDW 13.2 % (11.5-14.5); WBC 9.17 X 10*3/uL (4.50-10.00)
[2024-06-30 19:16] LABS: Appearance,Urine Clear (Clear); Bilirubin,Urine Negative (Negative); Blood,Urine Negative (Negative); Color,Urine Yellow (Yellow); Ketones,Urine Trace (Negative); Nitrite,Urine Negative (Negative); Specific Gravity,Urine 1.025 (1.001-1.030); Urobilinogen,Urine 0.2 E.U./DL
[2024-06-30 19:24] LABS: Bacteria,Urine 3+ (None Seen)
== END | disposition home or self-care (01) ==
LOC: LABWHC1 13:41
PROVIDERS: ATTEND Internal Medicine Nephrology
DX: R79.89 Other specified abnormal findings of blood chemistry (principal)
CPT/HCPCS: 36415; 80053; 81001; 83735; 84100; 85025